=== PATIENT | male | born 1945 | race Caucasian/White ===

== ENCOUNTER 2022-05-12 18:24 | Emergency (ER) | payer OTHER, MEDICAID ==
[~2022-05-12] VITALS: Ht 177.8 cm; Wt 68.0 kg
[2022-05-12 18:35] VITALS: BP 123/54
--- NOTE | 2022-05-12 18:40 | NUR ---
PT TO BED 05 ALS.
[2022-05-12] MEDS ORDERED: NACL 0.9% 1,000 ML IV ONE ×2 (18:45→20:10)
[2022-05-12] MEDS ORDERED: DEXTROSE 50% 50 ML SYR IVP ONE ×3 (18:45→20:56)
[2022-05-12 19:33] LABS: BASOPHILS % (AUTO) 0.1 % (0.0-2.0); EOSINOPHILS % (AUTO) 0.4 % (0.0-4.0); HEMOGLOBIN 11.4 g/dL (12.0-18.0); LYMPHOCYTES # (AUTO) 0.3 K/uL (2.0-11.5); LYMPHOCYTES % (AUTO) 3.8 % (20.5-51.1); MEAN CORPUSCULAR HEMOGLOBIN 31 pg (27-31); MEAN CORPUSCULAR HGB CONC 34 g/dL (33-37); MEAN CORPUSCULAR VOLUME 93.4 fL (80-94); MONOCYTES # (AUTO) 0.4 K/uL (0.8-1.0); MONOCYTES % (AUTO) 4.9 % (1.7-9.3); NEUTROPHILS % (AUTO) 90.8 % (42.2-75.2); PLATELET COUNT (AUTO) 195 K/uL (140-450); RED BLOOD CELL COUNT(AUTO) 3.64 MIL/uL (4.20-6.10); WHITE BLOOD COUNT (AUTO) 7.7 K/uL (4.8-10.8)
--- NOTE | 2022-05-12 19:40 | NUR ---
PT TO CT
[2022-05-12 19:55] LABS: ANION GAP 15.4 (8-16); CARBON DIOXIDE 25.5 mmol/L (21-32); CHLORIDE 102 mmol/L (98-107); CREATININE 1.1 mg/dL (0.6-1.3); GLUCOSE 156 mg/dL (74-106); POTASSIUM 3.9 mmol/L (3.5-5.1); SODIUM SERUM 139 mmol/L (136-145); UREA NITROGEN, BLOOD 29 mg/dL (7-18)
[2022-05-12 20:10] LABS: ALBUMIN 3.4 g/dL (3.4-5.0); ASPARTATE AMINOTRANSFERASE 11 U/L (15-37); MAGNESIUM 1.6 mg/dL (1.8-2.4); PHOSPHORUS 4.5 mg/dL (2.5-4.9); TOTAL BILIRUBIN 0.2 mg/dL (0.0-1.0)
[2022-05-12] MEDS ORDERED: DEXT 5% / NACL 0.45% 1,000 ML IV ONE (20:55)
--- NOTE | 2022-05-12 21:16 | NUR ---
GLUC 176 AFTER JUICE AND AMP GIVEN . PT GLUC PRIOR WAS 36. DR THORNTON NOTIFED
--- NOTE | 2022-05-12 21:57 | NUR ---
PT TO CT
--- NOTE | 2022-05-12 22:03 | NUR ---
76YR OLD MALE C/O LOW BLOOD SUGAR. PT IS KNOWN DM. PT IS A&OX4. DENIES PAIN CP OR SOB. HOB ELEVATED SKIN WARM AND DRY. GLUCOSE DROPS DOWN TO 30S. DR THORNTON AWARE. 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 [place] SPEAKING ONLY CHEL[place]
[2022-05-12] MEDS ORDERED: MAG SULF 2000 MG/WATER PREMIX 50 ML IV ONE (23:55)
--- NOTE | 2022-05-13 00:42 | NUR ---
PENDING ADMIT ORDERS
--- NOTE | 2022-05-13 00:42 | NUR ---
PROVIDED FOOD TO PT.
[2022-05-13] MEDS ORDERED: LORazepam 2 MG/ML VIAL ONE (01:28)
[2022-05-13] MEDS ORDERED: LORazepam 2 MG/ML VIAL IVP ONE ×2 (01:30→01:55)
--- NOTE | 2022-05-13 03:28 | NUR ---
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 HOB ELEVATED. RESP EVEN AND UNLABORED.
--- NOTE | 2022-05-13 05:29 | NUR ---
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 HOB ELEVATED. RESP EVEN AND UNLABORED. BED AT LOWEST POSITION SIDE RAILS UP X2
[2022-05-13] MEDS ORDERED: ACETAMINOPHEN 325 MG TAB PO PRN (09:10)
[2022-05-13] MEDS ORDERED: ZOLPIDEM 5 MG TAB PO PRN (09:10)
[2022-05-13] MEDS ORDERED: ONDANSETRON 4 MG/2 ML VIAL IM/IVP PRN (09:10)
[2022-05-13] MEDS ORDERED: DOCUSATE SODIUM 100 MG GELCAP PO PRN (09:10)
[2022-05-13] MEDS ORDERED: HYDROcodone/APAP 7.5/325 MG 1 TAB PO PRN (09:10)
[2022-05-13] MEDS ORDERED: guaiFENesin DM 200/20 MG-10 ML 10 ML UDC PO PRN (09:10)
[2022-05-13] MEDS ORDERED: POTASSIUM CHLORIDE 10 MEQ TABER PO PRN (09:10)
[2022-05-13] MEDS ORDERED: DEXT 5% /NACL 0.9% 1,000 ML IV SCH (09:30)
--- NOTE | 2022-05-13 10:10 | NUR ---
MD MARTELL AT BEDSIDE FOR EVALUATION
--- NOTE | 2022-05-13 10:14 | NUR ---
PER MD MARTELL "PT OK FOR D/C" "BS CAN BE MANAGED AT FACILITY" Addendum: 05/13/22 at 1017 by PHSEP GARTH ORTEGA
[2022-05-13 10:24] LABS: PROTHROMBIN TIME 11.6 secs (10.8-13.4)
[2022-05-13 10:41] VITALS: BP 112/62
--- NOTE | 2022-05-13 10:41 | NUR ---
Patient discharged with v/s stable. Written and verbal after care instructions given and explained. Patient verbalized understanding. Ambulatory with DAUGHTER to car. All questions addressed prior to discharge. Advised to follow up with PMD. COPY OF LABS AND CT GIVEN
[2022-05-13 10:42] LABS: CHOL/HDL RATIO 1.4 (1-4.5); FREE T4 (FREE THYROXINE) 0.81 ng/dL (0.76-1.46); THYROID STIMULATING HORMONE 1.73 uIU/mL (0.34-3.74)
--- NOTE | 2022-05-13 10:42 | NUR ---
IV removed, catheter intact and site benign. Applied folded 4x4 gauze and tape to stop bleeding.
--- NOTE | 2022-05-13 10:52 | NUR ---
ATE BREAKFAST MEAL 75% TOLERATED WELL
[2022-05-14 08:07] LABS: T4 (THYROXINE) 5.2 ug/dL (4.5-12.0)
[2022-05-14] MEDS ORDERED: PANTOPRAZOLE 40 MG TABEC PO SCH (09:00)
== END 2022-05-13 10:41 | disposition home or self-care (01) ==
LOC: MED 18:24
DX: E11.649 Type 2 diabetes mellitus with hypoglycemia without coma (principal); Z20.822 Contact with and (suspected) exposure to COVID-19; R41.82 Altered mental status, unspecified; E78.5 Hyperlipidemia, unspecified; F03.90 Unspecified dementia, unspecified severity, without behavioral disturbance, psychotic disturbance, mood disturbance, and anxiety; Z79.4 Long term (current) use of insulin; Z79.899 Other long term (current) drug therapy
CPT/HCPCS: 36415; 70450; 71045; 74177; 80053; 80061; 82150; 83036; 83605; 83690; 83735; 83880; 84100; 84436; 84439; 84443; 84479; 84484; 85025; 85610; 85730; 87426; 93005; 96361; 96365; 96375; 99291; G0482; J2060; J3475; J7030; Q0092; Q9967

== ENCOUNTER 2022-05-14 22:47 | Emergency (ER) | payer OTHER, MEDICAID ==
[~2022-05-14] VITALS: Ht 170.2 cm; Wt 72.6 kg
[2022-05-14 23:00] VITALS: BP 121/50
--- NOTE | 2022-05-14 23:02 | NUR ---
Patient taken to bed 3
--- NOTE | 2022-05-14 23:37 | NUR ---
Dr. Grimm examining patient.
[2022-05-14 23:52] VITALS: BP 118/64
--- NOTE | 2022-05-14 23:58 | NUR ---
PATIENT DC HOME STABLE VITALS SIGNS IN NORMAL LIMITS ALERT ORIENTED BS 112 ALL DC INSTRUCTION GAVE AND EXPLAINED WE RECOMMEND TO FOLLOW UP WITH PCP
== END 2022-05-14 23:58 | disposition home or self-care (01) ==
LOC: MED 22:47
DX: E11.649 Type 2 diabetes mellitus with hypoglycemia without coma (principal); F03.90 Unspecified dementia, unspecified severity, without behavioral disturbance, psychotic disturbance, mood disturbance, and anxiety; E08.22 Diabetes mellitus due to underlying condition with diabetic chronic kidney disease; I12.9 Hypertensive chronic kidney disease with stage 1 through stage 4 chronic kidney disease, or unspecified chronic kidney disease; N18.9 Chronic kidney disease, unspecified; K21.9 Gastro-esophageal reflux disease without esophagitis
CPT/HCPCS: 82948; 99282

== ENCOUNTER 2023-01-25 21:11 | Emergency (ER) | payer OTHER, MEDICAID ==
[~2023-01-25] VITALS: Ht 175.3 cm; Wt 61.2 kg
[2023-01-25 21:12] VITALS: BP 126/63; PULSE 87; RESP 18; TEMP 97.8; O2SAT 97
[2023-01-25 21:25] VITALS: BP 126/63; PULSE 87; RESP 18; TEMP 97.8; O2SAT 97
== END 2023-01-26 01:15 | disposition home or self-care (01) ==
LOC: MED 21:11
DX: S01.81XA Laceration without foreign body of other part of head, initial encounter (principal); E11.9 Type 2 diabetes mellitus without complications; K21.9 Gastro-esophageal reflux disease without esophagitis; F03.90 Unspecified dementia, unspecified severity, without behavioral disturbance, psychotic disturbance, mood disturbance, and anxiety; I10 Essential (primary) hypertension; W01.198A Fall on same level from slipping, tripping and stumbling with subsequent striking against other object, initial encounter; Y92.89 Other specified places as the place of occurrence of the external cause; Y93.89 Activity, other specified; Y99.8 Other external cause status
CPT/HCPCS: 12013; 70450; 90471; 90715; 99285

== ENCOUNTER 2023-02-27 17:53 | Emergency (ER) | payer OTHER, MEDICAID ==
[~2023-02-27] VITALS: Ht 160 cm; Wt 57.8 kg
[2023-02-27 18:11] VITALS: BP 110/60; PULSE 110; RESP 15; TEMP 97.9; O2SAT 98
[2023-02-27] MEDS ORDERED: NACL 0.9% 1,000 ML IV ONE (19:45)
[2023-02-27 19:58] LABS: BASOPHILS % (AUTO) 0.4 % (0.0-2.0); EOSINOPHILS # (AUTO) 0.1 K/uL (0-0.4); EOSINOPHILS % (AUTO) 0.9 % (0.0-4.0); HEMATOCRIT 41.1 % (36-52); HEMOGLOBIN 14.1 g/dL (12.0-18.0); LYMPHOCYTES % (AUTO) 11.4 % (20.5-51.1); MEAN CORPUSCULAR HEMOGLOBIN 32 pg (27-31); MEAN CORPUSCULAR HGB CONC 34 g/dL (33-37); MEAN CORPUSCULAR VOLUME 91.8 fL (80-94); MONOCYTES # (AUTO) 0.6 K/uL (0.8-1.0); NEUTROPHILS # (AUTO) 7.1 K/uL (1.8-7.7); NEUTROPHILS % (AUTO) 80.3 % (42.2-75.2); PLATELET COUNT (AUTO) 323 K/uL (140-450); RED BLOOD CELL COUNT(AUTO) 4.48 MIL/uL (4.20-6.10); RED CELL DISTRIBUTION WIDTH 15.1 % (11.6-13.7); WHITE BLOOD COUNT (AUTO) 8.8 K/uL (4.8-10.8)
[2023-02-27 20:17] LABS: ANION GAP 14.1 (8-16); CALCIUM 9.2 mg/dL (8.5-10.1); CARBON DIOXIDE 29.5 mmol/L (21-32); CHLORIDE 100 mmol/L (98-107); CREATININE 1.2 mg/dL (0.6-1.3); GLUCOSE 153 mg/dL (74-106); POTASSIUM 3.6 mmol/L (3.5-5.1); SODIUM SERUM 140 mmol/L (136-145); UREA NITROGEN, BLOOD 34 mg/dL (7-18)
[2023-02-27 20:29] LABS: ALANINE AMINOTRANSFERASE 29 U/L (12-78); ALBUMIN 3.8 g/dL (3.4-5.0); ALKALINE PHOSPHATASE 142 U/L (50-136); ASPARTATE AMINOTRANSFERASE 18 U/L (15-37); BILIRUBIN,DIRECT 0.1 mg/dL (0.0-0.3); LIPASE 44 U/L (16-77); TOTAL BILIRUBIN 0.4 mg/dL (0.0-1.0); TOTAL PROTEIN, SERUM 8.4 g/dL (6.4-8.2)
[2023-02-27] MEDS ORDERED: CEFP200T20 PO (23:15)
[2023-02-27 23:44] VITALS: BP 102/63; PULSE 103; RESP 16; TEMP 97.8; O2SAT 98
== END 2023-02-27 23:37 | disposition home or self-care (01) ==
LOC: MED 17:53
DX: N30.00 Acute cystitis without hematuria (principal); E11.9 Type 2 diabetes mellitus without complications; I10 Essential (primary) hypertension; K21.9 Gastro-esophageal reflux disease without esophagitis; F03.90 Unspecified dementia, unspecified severity, without behavioral disturbance, psychotic disturbance, mood disturbance, and anxiety; Z79.899 Other long term (current) drug therapy
CPT/HCPCS: 36415; 71045; 74176; 80048; 80076; 82948; 83690; 84484; 85025; 93005; 96360; 99285; J7030

== ENCOUNTER 2023-03-27 18:37 | Inpatient (IN) | payer OTHER, MEDICAID ==
[~2023-03-27] VITALS: Ht 175.3 cm; Wt 56.7 kg
[~2023-03-27 18:37] MED LIST: CEFP200T20 PO
[2023-03-27 18:48] VITALS: BP 145/60; PULSE 102; RESP 16; TEMP 98.7; O2SAT 98
[2023-03-27] MEDS ORDERED: NACL 0.9% 1,000 ML IV SCH (19:10)
[2023-03-27] MEDS: NACL 0.9% 1,000 ML IV ONE ×2 (19:27→20:12)
[2023-03-27] MEDS: ONDANSETRON 4 MG/2 ML VIAL IVP ONE ×2 (19:28→20:21)
[2023-03-27] MEDS: LORazepam 2 MG/ML VIAL IVP ONE (19:28)
[2023-03-27 19:32] LABS: BASOPHILS % (AUTO) 0.2 % (0.0-2.0); HEMATOCRIT 36.3 % (36-52); HEMOGLOBIN 12.5 g/dL (12.0-18.0); LYMPHOCYTES # (AUTO) 0.4 K/uL (2.0-11.5); LYMPHOCYTES % (AUTO) 8.7 % (20.5-51.1); MEAN CORPUSCULAR HEMOGLOBIN 32 pg (27-31); MEAN CORPUSCULAR HGB CONC 34 g/dL (33-37); MEAN CORPUSCULAR VOLUME 93.6 fL (80-94); MONOCYTES # (AUTO) 0.3 K/uL (0.8-1.0); NEUTROPHILS # (AUTO) 4.2 K/uL (1.8-7.7); NEUTROPHILS % (AUTO) 85.1 % (42.2-75.2); PLATELET COUNT (AUTO) 233 K/uL (140-450); RED BLOOD CELL COUNT(AUTO) 3.88 MIL/uL (4.20-6.10); RED CELL DISTRIBUTION WIDTH 17.1 % (11.6-13.7); WHITE BLOOD COUNT (AUTO) 4.9 K/uL (4.8-10.8)
[2023-03-27 19:45] LABS: ANION GAP 12.3 (8-16); CALCIUM 9.1 mg/dL (8.5-10.1); CARBON DIOXIDE 29.1 mmol/L (21-32); CHLORIDE 100 mmol/L (98-107); CREATININE 0.7 mg/dL (0.6-1.3); GLUCOSE 177 mg/dL (74-106); POTASSIUM 3.4 mmol/L (3.5-5.1); SODIUM SERUM 138 mmol/L (136-145); UREA NITROGEN, BLOOD 25 mg/dL (7-18)
[2023-03-27 19:46] LABS: INR 1.07 (0.8-1.2); PARTIAL THROMBOPLASTIN TIME 24.9 secs (22-35.6); PROTHROMBIN TIME 11.2 secs (10.8-13.4)
[2023-03-27 19:55] LABS: LACTIC ACID 1.3 mmol/L (0.4-2.0)
[2023-03-27 20:00] LABS: ALANINE AMINOTRANSFERASE 20 U/L (12-78); ALBUMIN 4.1 g/dL (3.4-5.0); ALKALINE PHOSPHATASE 103 U/L (50-136); ASPARTATE AMINOTRANSFERASE 10 U/L (15-37); BILIRUBIN,DIRECT 0.2 mg/dL (0.0-0.3); CREATINE KINASE, TOTAL 93 U/L (39-308); TOTAL BILIRUBIN 0.6 mg/dL (0.0-1.0); TOTAL PROTEIN, SERUM 8.4 g/dL (6.4-8.2)
[2023-03-27 20:05] VITALS: O2SAT 98
[2023-03-27] MEDS: diphenhydrAMINE 50 MG/ML VIAL IVP ONE (20:21)
[2023-03-27 22:10] VITALS: O2SAT 98
[2023-03-28 00:05] VITALS: O2SAT 98
[2023-03-28] MEDS ORDERED: ACETAMINOPHEN 325 MG TAB PO PRN (01:20)
[2023-03-28] MEDS ORDERED: ONDANSETRON 4 MG/2 ML VIAL IM/IVP PRN (01:20)
[2023-03-28] MEDS ORDERED: guaiFENesin DM 200/20 MG-10 ML 10 ML UDC PO PRN (01:20)
[2023-03-28] MEDS ORDERED: POTASSIUM CHLORIDE 10 MEQ TABER PO PRN (01:20)
[2023-03-28] MEDS ORDERED: HYDROcodone/APAP 7.5/325 MG 1 TAB PO PRN (01:20)
[2023-03-28] MEDS ORDERED: DOCUSATE SODIUM 100 MG GELCAP PO PRN (01:20)
[2023-03-28] MEDS: NACL 0.9% 1,000 ML IV SCH (02:12)
[2023-03-28 02:40] VITALS: O2SAT 98
[2023-03-28] MEDS ORDERED: MEMA10TA PO ×2 (04:22→09:54)
[2023-03-28] MEDS ORDERED: ALPR0.5T2 PO (04:22)
[2023-03-28] MEDS ORDERED: [UNRECOGNIZED DRUG - CODE] PO (04:22)
[2023-03-28] MEDS ORDERED: RISP0.5T3 PO (04:22)
[2023-03-28] MEDS ORDERED: ATOR40TA PO ×2 (04:22→09:56)
[2023-03-28] MEDS ORDERED: LISI5TAB18 PO (04:22)
[2023-03-28] MEDS ORDERED: INSU3SUS16 SC (04:22)
[2023-03-28] MEDS ORDERED: METF-346 PO (04:22)
[2023-03-28 05:25] VITALS: O2SAT 100
[2023-03-28 07:16] LABS: BASOPHILS % (AUTO) 0.3 % (0.0-2.0); EOSINOPHILS % (AUTO) 0.9 % (0.0-4.0); HEMATOCRIT 35.4 % (36-52); LYMPHOCYTES # (AUTO) 0.6 K/uL (2.0-11.5); LYMPHOCYTES % (AUTO) 13.2 % (20.5-51.1); MEAN CORPUSCULAR HEMOGLOBIN 32 pg (27-31); MEAN CORPUSCULAR HGB CONC 34 g/dL (33-37); MEAN CORPUSCULAR VOLUME 94.9 fL (80-94); MONOCYTES # (AUTO) 0.4 K/uL (0.8-1.0); MONOCYTES % (AUTO) 7.9 % (1.7-9.3); NEUTROPHILS # (AUTO) 3.8 K/uL (1.8-7.7); NEUTROPHILS % (AUTO) 77.7 % (42.2-75.2); PLATELET COUNT (AUTO) 203 K/uL (140-450); RED BLOOD CELL COUNT(AUTO) 3.72 MIL/uL (4.20-6.10); RED CELL DISTRIBUTION WIDTH 17.2 % (11.6-13.7); WHITE BLOOD COUNT (AUTO) 4.9 K/uL (4.8-10.8)
[2023-03-28 07:30] VITALS: O2SAT 100
[2023-03-28 08:00] VITALS: RESP 13; O2SAT 100
[2023-03-28 08:00] LABS: ALANINE AMINOTRANSFERASE 16 U/L (12-78); ALBUMIN 3.4 g/dL (3.4-5.0); ALKALINE PHOSPHATASE 93 U/L (50-136); ANION GAP 9.1 (8-16); ASPARTATE AMINOTRANSFERASE 9 U/L (15-37); CALCIUM 8.6 mg/dL (8.5-10.1); CARBON DIOXIDE 30.1 mmol/L (21-32); CHLORIDE 105 mmol/L (98-107); CREATININE 0.8 mg/dL (0.6-1.3); GLUCOSE 170 mg/dL (74-106); MAGNESIUM 1.9 mg/dL (1.8-2.4); PHOSPHORUS 3.5 mg/dL (2.5-4.9); POTASSIUM 3.2 mmol/L (3.5-5.1); SODIUM SERUM 141 mmol/L (136-145); TOTAL BILIRUBIN 0.6 mg/dL (0.0-1.0); TOTAL PROTEIN, SERUM 7.2 g/dL (6.4-8.2); UREA NITROGEN, BLOOD 8 mg/dL (7-18)
[2023-03-28] MEDS: PANTOPRAZOLE 40 MG TABEC PO SCH (09:00)
[2023-03-28 09:50] LABS: APPEARANCE,URINE CLEAR (CLEAR); BILIRUBIN,URINE NEGATIVE (NEGATIVE); BLOOD, URINE NEGATIVE (NEGATIVE); COLOR,URINE YELLOW (YELLOW); LEUKOCYTE ESTERASE ,URINE NEGATIVE (NEGATIVE); NITRITE, URINE NEGATIVE (NEGATIVE); PH,URINE 6.5 (5.0-9.0); PROTEIN,URINE NEGATIVE (NEGATIVE); UGLUCOSE 1+ (NEGATIVE)
[2023-03-28] MEDS ORDERED: DEXTROSE 50% 50 ML SYR IVP PRN (09:55)
[2023-03-28] MEDS: INSULIN LISPRO SLIDING SCALE 100 UNITS/ML VIAL SUBQ PRN (10:06)
[2023-03-28 10:23] LABS: BACTERIA,URINE OCCASSIONAL /HPF (None Seen); RBC,URINE 0-5 /HPF (0-5); SQUAMOUS EPITHELIAL CELL,UR 0-3 (FEW) /LPF (0-3 (FEW)); WBC,URINE 0-5 /HPF (0-5)
[2023-03-28] MEDS: BLOOD GLUCOSE MONITORING 1 DEV DEV FS SCH (11:30)
[2023-03-28] MEDS ORDERED: LORazepam 2 MG/ML VIAL IM/IVP PRN (17:00)
[2023-03-28 20:00] VITALS: BP 136/58; PULSE 59; PULSE 65; RESP 18; TEMP 97.7; O2SAT 98
[2023-03-28] MEDS: ZOLPIDEM 5 MG TAB PO PRN (20:31)
[2023-03-29] VITALS (7 sets, daily range): BP systolic 138–152; BP diastolic 55–71; PULSE 54–78; RESP 18–19; TEMP 97.7–98.3; O2SAT 97–99
[2023-03-29 07:13] LABS: BASOPHILS % (AUTO) 0.3 % (0.0-2.0); EOSINOPHILS # (AUTO) 0.1 K/uL (0-0.4); EOSINOPHILS % (AUTO) 1.7 % (0.0-4.0); HEMATOCRIT 35.4 % (36-52); HEMOGLOBIN 12.3 g/dL (12.0-18.0); LYMPHOCYTES # (AUTO) 0.7 K/uL (2.0-11.5); LYMPHOCYTES % (AUTO) 15.2 % (20.5-51.1); MEAN CORPUSCULAR HEMOGLOBIN 33 pg (27-31); MEAN CORPUSCULAR HGB CONC 35 g/dL (33-37); MEAN CORPUSCULAR VOLUME 93.6 fL (80-94); MONOCYTES # (AUTO) 0.4 K/uL (0.8-1.0); MONOCYTES % (AUTO) 8.2 % (1.7-9.3); NEUTROPHILS # (AUTO) 3.2 K/uL (1.8-7.7); NEUTROPHILS % (AUTO) 74.6 % (42.2-75.2); PLATELET COUNT (AUTO) 211 K/uL (140-450); RED BLOOD CELL COUNT(AUTO) 3.79 MIL/uL (4.20-6.10); RED CELL DISTRIBUTION WIDTH 16.6 % (11.6-13.7); WHITE BLOOD COUNT (AUTO) 4.3 K/uL (4.8-10.8)
[2023-03-29 07:21] LABS: ALANINE AMINOTRANSFERASE 16 U/L (12-78); ALBUMIN 3.4 g/dL (3.4-5.0); ALKALINE PHOSPHATASE 95 U/L (50-136); ANION GAP 12.7 (8-16); ASPARTATE AMINOTRANSFERASE 8 U/L (15-37); CALCIUM 8.5 mg/dL (8.5-10.1); CARBON DIOXIDE 27.8 mmol/L (21-32); CHLORIDE 103 mmol/L (98-107); CREATININE 0.8 mg/dL (0.6-1.3); GLUCOSE 171 mg/dL (74-106); POTASSIUM 3.5 mmol/L (3.5-5.1); SODIUM SERUM 140 mmol/L (136-145); TOTAL BILIRUBIN 0.8 mg/dL (0.0-1.0); TOTAL PROTEIN, SERUM 7.3 g/dL (6.4-8.2); UREA NITROGEN, BLOOD 10 mg/dL (7-18)
[2023-03-29] MEDS ORDERED: ALPRAZolam 0.5 MG TAB PO PRN (11:15)
[2023-03-29] MEDS: ALPRAZolam 0.5 MG TAB PO SCH (20:45)
[2023-03-29] MEDS: risperiDONE 1 MG TAB PO SCH (20:45)
[2023-03-30 04:18] VITALS: BP 131/56; PULSE 64; RESP 20; TEMP 97.5; O2SAT 99
[2023-03-30 07:03] LABS: BASOPHILS % (AUTO) 0.2 % (0.0-2.0); EOSINOPHILS # (AUTO) 0.1 K/uL (0-0.4); EOSINOPHILS % (AUTO) 3.6 % (0.0-4.0); HEMATOCRIT 37.3 % (36-52); HEMOGLOBIN 12.9 g/dL (12.0-18.0); LYMPHOCYTES # (AUTO) 0.7 K/uL (2.0-11.5); LYMPHOCYTES % (AUTO) 19.7 % (20.5-51.1); MEAN CORPUSCULAR HEMOGLOBIN 33 pg (27-31); MEAN CORPUSCULAR HGB CONC 35 g/dL (33-37); MEAN CORPUSCULAR VOLUME 94.4 fL (80-94); MONOCYTES # (AUTO) 0.4 K/uL (0.8-1.0); MONOCYTES % (AUTO) 10.7 % (1.7-9.3); NEUTROPHILS # (AUTO) 2.5 K/uL (1.8-7.7); NEUTROPHILS % (AUTO) 65.8 % (42.2-75.2); PLATELET COUNT (AUTO) 223 K/uL (140-450); RED BLOOD CELL COUNT(AUTO) 3.95 MIL/uL (4.20-6.10); RED CELL DISTRIBUTION WIDTH 16.7 % (11.6-13.7); WHITE BLOOD COUNT (AUTO) 3.7 K/uL (4.8-10.8)
[2023-03-30 07:32] LABS: ALANINE AMINOTRANSFERASE 19 U/L (12-78); ALBUMIN 3.5 g/dL (3.4-5.0); ALKALINE PHOSPHATASE 104 U/L (50-136); ANION GAP 14.9 (8-16); ASPARTATE AMINOTRANSFERASE 9 U/L (15-37); CALCIUM 8.7 mg/dL (8.5-10.1); CARBON DIOXIDE 26.5 mmol/L (21-32); CHLORIDE 102 mmol/L (98-107); CREATININE 0.7 mg/dL (0.6-1.3); GLUCOSE 189 mg/dL (74-106); POTASSIUM 3.4 mmol/L (3.5-5.1); SODIUM SERUM 140 mmol/L (136-145); TOTAL BILIRUBIN 0.9 mg/dL (0.0-1.0); TOTAL PROTEIN, SERUM 7.3 g/dL (6.4-8.2); UREA NITROGEN, BLOOD 14 mg/dL (7-18)
[2023-03-30 08:00] VITALS: BP 124/76; PULSE 75; PULSE 84; RESP 18; TEMP 98.2; O2SAT 98; O2SAT 99
[2023-03-30] MEDS: SERTRALINE 50 MG TAB PO SCH (09:01)
[2023-03-30 12:00] VITALS: BP 130/76; PULSE 80; RESP 16; TEMP 98; O2SAT 99
[2023-03-30 15:48] VITALS: PULSE 75
[2023-03-30 16:00] VITALS: BP 134/68; PULSE 82; RESP 20; TEMP 98.2; O2SAT 99
[2023-03-30 20:00] VITALS: BP 146/65; PULSE 63; RESP 17; TEMP 97.6; O2SAT 100
[2023-03-30] MEDS: MEMANTINE 10 MG TAB PO SCH (20:26)
[2023-03-31 07:11] LABS: BASOPHILS % (AUTO) 0.1 % (0.0-2.0); EOSINOPHILS # (AUTO) 0.1 K/uL (0-0.4); EOSINOPHILS % (AUTO) 2.6 % (0.0-4.0); HEMATOCRIT 35.1 % (36-52); HEMOGLOBIN 12.2 g/dL (12.0-18.0); LYMPHOCYTES # (AUTO) 0.5 K/uL (2.0-11.5); LYMPHOCYTES % (AUTO) 12.2 % (20.5-51.1); MEAN CORPUSCULAR HEMOGLOBIN 32 pg (27-31); MEAN CORPUSCULAR HGB CONC 35 g/dL (33-37); MEAN CORPUSCULAR VOLUME 93.5 fL (80-94); MONOCYTES # (AUTO) 0.3 K/uL (0.8-1.0); MONOCYTES % (AUTO) 7.2 % (1.7-9.3); NEUTROPHILS # (AUTO) 3.4 K/uL (1.8-7.7); NEUTROPHILS % (AUTO) 77.9 % (42.2-75.2); PLATELET COUNT (AUTO) 211 K/uL (140-450); RED BLOOD CELL COUNT(AUTO) 3.76 MIL/uL (4.20-6.10); RED CELL DISTRIBUTION WIDTH 16.6 % (11.6-13.7); WHITE BLOOD COUNT (AUTO) 4.4 K/uL (4.8-10.8)
[2023-03-31 07:36] LABS: ALANINE AMINOTRANSFERASE 24 U/L (12-78); ALBUMIN 3.3 g/dL (3.4-5.0); ALKALINE PHOSPHATASE 116 U/L (50-136); ANION GAP 14.1 (8-16); ASPARTATE AMINOTRANSFERASE 11 U/L (15-37); CALCIUM 8.6 mg/dL (8.5-10.1); CARBON DIOXIDE 25.4 mmol/L (21-32); CHLORIDE 99 mmol/L (98-107); CREATININE 0.6 mg/dL (0.6-1.3); GLUCOSE 269 mg/dL (74-106); POTASSIUM 3.5 mmol/L (3.5-5.1); SODIUM SERUM 135 mmol/L (136-145); TOTAL BILIRUBIN 0.4 mg/dL (0.0-1.0); TOTAL PROTEIN, SERUM 7.1 g/dL (6.4-8.2); UREA NITROGEN, BLOOD 13 mg/dL (7-18)
[2023-03-31 08:00] VITALS: BP 140/61; PULSE 61; RESP 18; TEMP 97; O2SAT 100
[2023-03-31] MEDS: lisinopriL 5 MG TAB PO SCH (08:50)
[2023-03-31 16:00] VITALS: BP 130/64; PULSE 72; RESP 18; TEMP 98; O2SAT 100
[2023-03-31 20:00] VITALS: PULSE 72; RESP 18; O2SAT 97
[2023-04-01] VITALS: BP 110/72; PULSE 72; RESP 18; TEMP 98.2; O2SAT 97
[2023-04-01 07:47] LABS: BASOPHILS % (AUTO) 0.3 % (0.0-2.0); EOSINOPHILS # (AUTO) 0.2 K/uL (0-0.4); EOSINOPHILS % (AUTO) 3.6 % (0.0-4.0); HEMATOCRIT 36.3 % (36-52); HEMOGLOBIN 12.4 g/dL (12.0-18.0); LYMPHOCYTES # (AUTO) 0.7 K/uL (2.0-11.5); LYMPHOCYTES % (AUTO) 14.7 % (20.5-51.1); MEAN CORPUSCULAR HEMOGLOBIN 33 pg (27-31); MEAN CORPUSCULAR HGB CONC 34 g/dL (33-37); MEAN CORPUSCULAR VOLUME 95.1 fL (80-94); MONOCYTES # (AUTO) 0.4 K/uL (0.8-1.0); MONOCYTES % (AUTO) 7.8 % (1.7-9.3); NEUTROPHILS # (AUTO) 3.4 K/uL (1.8-7.7); NEUTROPHILS % (AUTO) 73.6 % (42.2-75.2); PLATELET COUNT (AUTO) 216 K/uL (140-450); RED BLOOD CELL COUNT(AUTO) 3.81 MIL/uL (4.20-6.10); RED CELL DISTRIBUTION WIDTH 16.3 % (11.6-13.7); WHITE BLOOD COUNT (AUTO) 4.6 K/uL (4.8-10.8)
[2023-04-01 08:00] VITALS: BP 136/63; PULSE 61; PULSE 64; RESP 18; TEMP 98; O2SAT 100; O2SAT 99
[2023-04-01 08:34] LABS: ALANINE AMINOTRANSFERASE 30 U/L (12-78); ALBUMIN 3.4 g/dL (3.4-5.0); ALKALINE PHOSPHATASE 118 U/L (50-136); ANION GAP 12.2 (8-16); ASPARTATE AMINOTRANSFERASE 11 U/L (15-37); CALCIUM 8.4 mg/dL (8.5-10.1); CARBON DIOXIDE 27.2 mmol/L (21-32); CHLORIDE 103 mmol/L (98-107); CREATININE 0.4 mg/dL (0.6-1.3); GLUCOSE 227 mg/dL (74-106); POTASSIUM 3.4 mmol/L (3.5-5.1); SODIUM SERUM 139 mmol/L (136-145); TOTAL BILIRUBIN 0.4 mg/dL (0.0-1.0); TOTAL PROTEIN, SERUM 7.4 g/dL (6.4-8.2); UREA NITROGEN, BLOOD 10 mg/dL (7-18)
[2023-04-01 16:00] VITALS: BP 132/61; PULSE 71; RESP 18; TEMP 97.8; O2SAT 96
[2023-04-01 20:00] VITALS: BP 122/58; PULSE 63; RESP 18; TEMP 96.7; O2SAT 99
[2023-04-01] MEDS: HALOPERIDOL IM 5 MG/ML VIAL IM ONE (21:00)
[2023-04-01] MEDS: POTASSIUM CHLORIDE 10 MEQ TABER PO ONE ×2 (23:29→23:39)
[2023-04-02 07:30] LABS: BASOPHILS % (AUTO) 0.2 % (0.0-2.0); EOSINOPHILS # (AUTO) 0.2 K/uL (0-0.4); HEMATOCRIT 34.4 % (36-52); HEMOGLOBIN 11.9 g/dL (12.0-18.0); LYMPHOCYTES # (AUTO) 0.7 K/uL (2.0-11.5); LYMPHOCYTES % (AUTO) 19.5 % (20.5-51.1); MEAN CORPUSCULAR HEMOGLOBIN 33 pg (27-31); MEAN CORPUSCULAR HGB CONC 35 g/dL (33-37); MEAN CORPUSCULAR VOLUME 94.7 fL (80-94); MONOCYTES # (AUTO) 0.4 K/uL (0.8-1.0); MONOCYTES % (AUTO) 9.7 % (1.7-9.3); NEUTROPHILS # (AUTO) 2.5 K/uL (1.8-7.7); NEUTROPHILS % (AUTO) 66.6 % (42.2-75.2); PLATELET COUNT (AUTO) 208 K/uL (140-450); RED BLOOD CELL COUNT(AUTO) 3.64 MIL/uL (4.20-6.10); RED CELL DISTRIBUTION WIDTH 16.6 % (11.6-13.7); WHITE BLOOD COUNT (AUTO) 3.8 K/uL (4.8-10.8)
[2023-04-02 08:00] VITALS: BP 135/52; PULSE 61; PULSE 64; RESP 18; TEMP 97.5; O2SAT 100; O2SAT 99
[2023-04-02 08:04] LABS: ALANINE AMINOTRANSFERASE 30 U/L (12-78); ALBUMIN 3.4 g/dL (3.4-5.0); ALKALINE PHOSPHATASE 104 U/L (50-136); ANION GAP 12.6 (8-16); ASPARTATE AMINOTRANSFERASE 13 U/L (15-37); CALCIUM 8.9 mg/dL (8.5-10.1); CARBON DIOXIDE 27.3 mmol/L (21-32); CHLORIDE 103 mmol/L (98-107); CREATININE 0.6 mg/dL (0.6-1.3); GLUCOSE 235 mg/dL (74-106); POTASSIUM 3.9 mmol/L (3.5-5.1); SODIUM SERUM 139 mmol/L (136-145); TOTAL BILIRUBIN 0.4 mg/dL (0.0-1.0); TOTAL PROTEIN, SERUM 6.5 g/dL (6.4-8.2); UREA NITROGEN, BLOOD 14 mg/dL (7-18)
[2023-04-02 16:00] VITALS: BP 129/61; PULSE 69; RESP 18; TEMP 97.3; O2SAT 99
[2023-04-02 20:00] VITALS: BP 116/68; PULSE 90; RESP 18; TEMP 97.2; O2SAT 99
[2023-04-03 06:42] LABS: BASOPHILS % (AUTO) 0.5 % (0.0-2.0); EOSINOPHILS # (AUTO) 0.1 K/uL (0-0.4); EOSINOPHILS % (AUTO) 3.8 % (0.0-4.0); HEMATOCRIT 36.9 % (36-52); HEMOGLOBIN 12.6 g/dL (12.0-18.0); LYMPHOCYTES # (AUTO) 0.8 K/uL (2.0-11.5); LYMPHOCYTES % (AUTO) 22.1 % (20.5-51.1); MEAN CORPUSCULAR HEMOGLOBIN 33 pg (27-31); MEAN CORPUSCULAR HGB CONC 34 g/dL (33-37); MONOCYTES # (AUTO) 0.4 K/uL (0.8-1.0); MONOCYTES % (AUTO) 9.8 % (1.7-9.3); NEUTROPHILS # (AUTO) 2.4 K/uL (1.8-7.7); NEUTROPHILS % (AUTO) 63.8 % (42.2-75.2); PLATELET COUNT (AUTO) 212 K/uL (140-450); RED BLOOD CELL COUNT(AUTO) 3.89 MIL/uL (4.20-6.10); RED CELL DISTRIBUTION WIDTH 16.7 % (11.6-13.7); WHITE BLOOD COUNT (AUTO) 3.7 K/uL (4.8-10.8)
[2023-04-03 06:57] LABS: ALANINE AMINOTRANSFERASE 29 U/L (12-78); ALBUMIN 3.5 g/dL (3.4-5.0); ALKALINE PHOSPHATASE 126 U/L (50-136); ANION GAP 11.5 (8-16); ASPARTATE AMINOTRANSFERASE 10 U/L (15-37); CALCIUM 8.7 mg/dL (8.5-10.1); CARBON DIOXIDE 29.2 mmol/L (21-32); CHLORIDE 100 mmol/L (98-107); CREATININE 0.7 mg/dL (0.6-1.3); GLUCOSE 255 mg/dL (74-106); POTASSIUM 3.7 mmol/L (3.5-5.1); SODIUM SERUM 137 mmol/L (136-145); TOTAL BILIRUBIN 0.4 mg/dL (0.0-1.0); TOTAL PROTEIN, SERUM 7.5 g/dL (6.4-8.2); UREA NITROGEN, BLOOD 17 mg/dL (7-18)
[2023-04-03 08:00] VITALS: BP 135/63; PULSE 63; PULSE 90; RESP 18; TEMP 97; O2SAT 98
[2023-04-03 16:00] VITALS: BP 125/72; PULSE 67; RESP 19; TEMP 97.3; O2SAT 100
[2023-04-03 20:00] VITALS: BP 122/70; PULSE 70; RESP 19; TEMP 97.1; O2SAT 100
[2023-04-04 07:17] LABS: BASOPHILS % (AUTO) 0.4 % (0.0-2.0); EOSINOPHILS # (AUTO) 0.2 K/uL (0-0.4); EOSINOPHILS % (AUTO) 4.2 % (0.0-4.0); HEMATOCRIT 36.8 % (36-52); HEMOGLOBIN 12.7 g/dL (12.0-18.0); LYMPHOCYTES # (AUTO) 0.9 K/uL (2.0-11.5); LYMPHOCYTES % (AUTO) 20.2 % (20.5-51.1); MEAN CORPUSCULAR HEMOGLOBIN 33 pg (27-31); MEAN CORPUSCULAR HGB CONC 35 g/dL (33-37); MEAN CORPUSCULAR VOLUME 95.2 fL (80-94); MONOCYTES # (AUTO) 0.5 K/uL (0.8-1.0); MONOCYTES % (AUTO) 10.2 % (1.7-9.3); NEUTROPHILS # (AUTO) 2.9 K/uL (1.8-7.7); PLATELET COUNT (AUTO) 209 K/uL (140-450); RED BLOOD CELL COUNT(AUTO) 3.87 MIL/uL (4.20-6.10); RED CELL DISTRIBUTION WIDTH 16.6 % (11.6-13.7); WHITE BLOOD COUNT (AUTO) 4.5 K/uL (4.8-10.8)
[2023-04-04 07:40] LABS: ALANINE AMINOTRANSFERASE 29 U/L (12-78); ALBUMIN 3.5 g/dL (3.4-5.0); ALKALINE PHOSPHATASE 112 U/L (50-136); ANION GAP 13.7 (8-16); ASPARTATE AMINOTRANSFERASE 7 U/L (15-37); CALCIUM 8.7 mg/dL (8.5-10.1); CARBON DIOXIDE 28.3 mmol/L (21-32); CHLORIDE 100 mmol/L (98-107); CREATININE 0.7 mg/dL (0.6-1.3); GLUCOSE 197 mg/dL (74-106); SODIUM SERUM 138 mmol/L (136-145); TOTAL BILIRUBIN 0.4 mg/dL (0.0-1.0); TOTAL PROTEIN, SERUM 7.4 g/dL (6.4-8.2); UREA NITROGEN, BLOOD 19 mg/dL (7-18)
[2023-04-04 08:00] VITALS: BP 136/64; PULSE 64; PULSE 70; RESP 18; TEMP 96.5; O2SAT 100; O2SAT 95
[2023-04-04] MEDS ORDERED: HUMSLIDE SUBQ (12:39)
[2023-04-04] MEDS ORDERED: RIS1 PO (12:39)
[2023-04-04] MEDS ORDERED: ALPR0.5T20 PO (12:39)
[2023-04-04] MEDS ORDERED: INSU100S22 SUBQ (12:40)
[2023-04-04 16:00] VITALS: BP 130/74; PULSE 64; RESP 18; TEMP 97.2; O2SAT 97
[2023-04-04 16:11] VITALS: BP 130/74; PULSE 64; TEMP 97.2
== END 2023-04-04 18:32 | DRG 74 ==
LOC: MED 18:37 → MTU 03-28 01:22
PROVIDERS: ADMIT Student in an Organized Health Care Education/Training Program; ATTEND Student in an Organized Health Care Education/Training Program
PROC: 4A00X4Z Measurement of Central Nervous Electrical Activity, External Approach (ICD-10-PCS; principal; 2023-03-27)
DX: E11.43 Type 2 diabetes mellitus with diabetic autonomic (poly)neuropathy (principal); F03.918 Unspecified dementia, unspecified severity, with other behavioral disturbance; Z68.1 Body mass index [BMI] 19.9 or less, adult; E44.1 Mild protein-calorie malnutrition; K31.84 Gastroparesis; G24.9 Dystonia, unspecified; E78.5 Hyperlipidemia, unspecified; I10 Essential (primary) hypertension; I44.0 Atrioventricular block, first degree
CPT/HCPCS: 36415; 70450; 71045; 80048; 80053; 80076; 81001; 82550; 82948; 83036; 83605; 83690; 83735; 84100; 84484; 85025; 85610; 85730; 87040; 87081; 87086; 92526; 93005; 95816; 96361; 96374; 96375; 96376; 97112; 97116; 97163-GP; 97530; 99285; J1200; J1815; J2060; J2405; Q0092; Q9967

== ENCOUNTER 2023-08-24 14:47 | Inpatient (IN) | payer OTHER ==
[~2023-08-24] VITALS: Ht 160 cm; Wt 62.6 kg
[~2023-08-24 14:47] MED LIST changes: +ALPR0.5T2 PO; +ALPR0.5T20 PO; +ATOR40TA PO; -CEFP200T20 PO; +HUMSLIDE SUBQ; +INSU100S22 SUBQ; +INSU3SUS16 SC; +LISI5TAB18 PO; +MEMA10TA22 PO; +METF-346 PO; +RIS1 PO; +[UNRECOGNIZED DRUG - CODE] PO
[2023-08-24 14:58] VITALS: BP 126/83; PULSE 76; RESP 16; TEMP 98.2; O2SAT 98
[2023-08-24 16:44] LABS: APPEARANCE,URINE CLEAR (CLEAR); BILIRUBIN,URINE NEGATIVE (NEGATIVE); BLOOD, URINE NEGATIVE (NEGATIVE); COLOR,URINE YELLOW (YELLOW); LEUKOCYTE ESTERASE ,URINE NEGATIVE (NEGATIVE); NITRITE, URINE NEGATIVE (NEGATIVE); PROTEIN,URINE NEGATIVE (NEGATIVE); UGLUCOSE 3+ (NEGATIVE)
[2023-08-24 16:56] LABS: AMPHETAMINE, URINE NEGATIVE ng/ml (NEG <=1000); BARBITURATE, URINE NEGATIVE ng/ml (NEG <=200); BENZODIAZEPINE, URINE POSITIVE ng/mL (NEG <=200); CANNABINOID, URINE NEGATIVE ng/mL (NEG <=50); COCAINE, URINE NEGATIVE ng/mL (NEG <=300); OPIATE, URINE NEGATIVE ng/mL (NEG <=2000); PHENCYCLIDINE SCREEN,URINE NEGATIVE ng/mL (NEG <=25)
[2023-08-24 16:59] LABS: BASOPHILS % (AUTO) 0.4 % (0.0-2.0); EOSINOPHILS # (AUTO) 0.2 K/uL (0-0.4); EOSINOPHILS % (AUTO) 3.8 % (0.0-4.0); HEMOGLOBIN 11.9 g/dL (12.0-18.0); LYMPHOCYTES % (AUTO) 17.1 % (20.5-51.1); MEAN CORPUSCULAR HEMOGLOBIN 32 pg (27-31); MEAN CORPUSCULAR HGB CONC 34 g/dL (33-37); MEAN CORPUSCULAR VOLUME 93.9 fL (80-94); MONOCYTES # (AUTO) 0.5 K/uL (0.8-1.0); MONOCYTES % (AUTO) 8.2 % (1.7-9.3); NEUTROPHILS # (AUTO) 4.3 K/uL (1.8-7.7); NEUTROPHILS % (AUTO) 70.5 % (42.2-75.2); PLATELET COUNT (AUTO) 172 K/uL (140-450); RED BLOOD CELL COUNT(AUTO) 3.73 MIL/uL (4.20-6.10); RED CELL DISTRIBUTION WIDTH 15.4 % (11.6-13.7); WHITE BLOOD COUNT (AUTO) 6.1 K/uL (4.8-10.8)
[2023-08-24 17:20] LABS: ALANINE AMINOTRANSFERASE 21 U/L (12-78); ALBUMIN 3.5 g/dL (3.4-5.0); ALCOHOL, BLOOD < 3 mg/dL (<10); ALKALINE PHOSPHATASE 92 U/L (50-136); ANION GAP 14.2 (8-16); ASPARTATE AMINOTRANSFERASE 9 U/L (15-37); CALCIUM 8.6 mg/dL (8.5-10.1); CARBON DIOXIDE 25.7 mmol/L (21-32); CHLORIDE 100 mmol/L (98-107); CREATININE 0.9 mg/dL (0.6-1.3); GLUCOSE 200 mg/dL (74-106); POTASSIUM 3.9 mmol/L (3.5-5.1); SALICYLATE < 2.8 mg/dL (2.8-20.0); SODIUM SERUM 136 mmol/L (136-145); TOTAL BILIRUBIN 0.2 mg/dL (0.0-1.0); TOTAL PROTEIN, SERUM 6.8 g/dL (6.4-8.2); UREA NITROGEN, BLOOD 23 mg/dL (7-18)
[2023-08-24] MEDS ORDERED: INSU100S22 SUBQ (18:03)
[2023-08-24] MEDS ORDERED: DONE5TAB6 PO (18:03)
[2023-08-24] MEDS ORDERED: MEMA10TA22 PO (18:03)
[2023-08-24] MEDS ORDERED: TUBE5SOL28 TD (18:03)
[2023-08-24] MEDS ORDERED: BISA-279 RC (18:03)
[2023-08-24] MEDS ORDERED: HUM SUBQ (18:03)
[2023-08-24] MEDS ORDERED: ESCI10TA PO (18:03)
[2023-08-24] MEDS ORDERED: RISP0.5T3 PO (18:03)
[2023-08-24] MEDS ORDERED: HYDROcodone/APAP 5/325 MG 1 TAB TAB PO PRN (18:40)
[2023-08-24] MEDS ORDERED: ACETAMINOPHEN 325 MG TAB PO PRN (18:40)
[2023-08-24] MEDS ORDERED: DEXTROSE 50% 50 ML SYR IVP PRN (18:45)
[2023-08-24] MEDS: NACL 0.9% 1,000 ML IV SCH (19:10)
[2023-08-24] MEDS ORDERED: LORazepam 2 MG/ML VIAL ONE ×2 (19:21→19:25)
[2023-08-24] MEDS: LORazepam 2 MG/ML VIAL IVP ONE (19:58)
[2023-08-24] MEDS: BLOOD GLUCOSE MONITORING 1 DEV DEV FS SCH (20:52)
[2023-08-24] MEDS: risperiDONE 1 MG TAB PO SCH (21:15)
[2023-08-24] MEDS: MEMANTINE 10 MG TAB PO SCH (21:15)
[2023-08-24] MEDS: ALPRAZolam 0.5 MG TAB PO SCH (21:15)
[2023-08-24] MEDS: INSULIN LISPRO SLIDING SCALE 100 UNITS/ML VIAL SUBQ PRN (21:15)
[2023-08-24 22:00] VITALS: BP 128/63; PULSE 74; RESP 18; TEMP 98.3; O2SAT 96; O2SAT 97
[2023-08-25 05:32] LABS: BASOPHILS % (AUTO) 0.5 % (0.0-2.0); EOSINOPHILS # (AUTO) 0.3 K/uL (0-0.4); EOSINOPHILS % (AUTO) 6.7 % (0.0-4.0); HEMATOCRIT 35.4 % (36-52); HEMOGLOBIN 12.2 g/dL (12.0-18.0); LYMPHOCYTES # (AUTO) 1.2 K/uL (2.0-11.5); LYMPHOCYTES % (AUTO) 25.8 % (20.5-51.1); MEAN CORPUSCULAR HEMOGLOBIN 32 pg (27-31); MEAN CORPUSCULAR HGB CONC 35 g/dL (33-37); MEAN CORPUSCULAR VOLUME 92.5 fL (80-94); MONOCYTES # (AUTO) 0.5 K/uL (0.8-1.0); MONOCYTES % (AUTO) 9.9 % (1.7-9.3); NEUTROPHILS # (AUTO) 2.6 K/uL (1.8-7.7); NEUTROPHILS % (AUTO) 57.1 % (42.2-75.2); PLATELET COUNT (AUTO) 182 K/uL (140-450); RED BLOOD CELL COUNT(AUTO) 3.83 MIL/uL (4.20-6.10); RED CELL DISTRIBUTION WIDTH 15.1 % (11.6-13.7); WHITE BLOOD COUNT (AUTO) 4.6 K/uL (4.8-10.8)
[2023-08-25 05:40] LABS: ANION GAP 12.3 (8-16); CALCIUM 8.7 mg/dL (8.5-10.1); CARBON DIOXIDE 27.4 mmol/L (21-32); CHLORIDE 103 mmol/L (98-107); CREATININE 0.7 mg/dL (0.6-1.3); GLUCOSE 174 mg/dL (74-106); POTASSIUM 3.7 mmol/L (3.5-5.1); SODIUM SERUM 139 mmol/L (136-145); UREA NITROGEN, BLOOD 16 mg/dL (7-18)
[2023-08-25 08:30] VITALS: BP 122/67; PULSE 56; RESP 18; TEMP 98.1; O2SAT 97
[2023-08-25] MEDS: ATORVASTATIN 20 MG TAB PO SCH (08:44)
[2023-08-25] MEDS: ESCITALOPRAM 20 MG TAB PO SCH (08:46)
[2023-08-25] MEDS: bisacodyL 10 MG SUPP RC SCH (09:00)
[2023-08-25 09:30] VITALS: RESP 18
[2023-08-25 16:00] VITALS: BP 135/63; PULSE 73; RESP 18; TEMP 98.2; O2SAT 100
[2023-08-25] MEDS: LORazepam 0.5 MG TAB PO PRN (16:49)
[2023-08-25 16:57] VITALS: O2SAT 97
[2023-08-25] MEDS: LORazepam 2 MG/ML VIAL IVP PRN (18:57)
[2023-08-25 20:00] VITALS: BP 128/62; PULSE 62; RESP 18; TEMP 98.1; O2SAT 98
[2023-08-25] MEDS: DONEPEZIL 10 MG TAB PO SCH (22:00)
[2023-08-26] VITALS: BP 130/70; PULSE 60; RESP 18; TEMP 98; O2SAT 96
[2023-08-26 05:51] LABS: BASOPHILS % (AUTO) 0.6 % (0.0-2.0); EOSINOPHILS # (AUTO) 0.2 K/uL (0-0.4); EOSINOPHILS % (AUTO) 4.8 % (0.0-4.0); HEMATOCRIT 37.2 % (36-52); HEMOGLOBIN 12.9 g/dL (12.0-18.0); LYMPHOCYTES # (AUTO) 1.1 K/uL (2.0-11.5); LYMPHOCYTES % (AUTO) 22.9 % (20.5-51.1); MEAN CORPUSCULAR HEMOGLOBIN 32 pg (27-31); MEAN CORPUSCULAR HGB CONC 35 g/dL (33-37); MEAN CORPUSCULAR VOLUME 92.5 fL (80-94); MONOCYTES # (AUTO) 0.5 K/uL (0.8-1.0); MONOCYTES % (AUTO) 9.3 % (1.7-9.3); NEUTROPHILS % (AUTO) 62.4 % (42.2-75.2); PLATELET COUNT (AUTO) 193 K/uL (140-450); RED BLOOD CELL COUNT(AUTO) 4.02 MIL/uL (4.20-6.10); WHITE BLOOD COUNT (AUTO) 4.9 K/uL (4.8-10.8)
[2023-08-26 05:59] LABS: ANION GAP 11.3 (8-16); CALCIUM 8.6 mg/dL (8.5-10.1); CARBON DIOXIDE 27.5 mmol/L (21-32); CHLORIDE 100 mmol/L (98-107); CREATININE 0.7 mg/dL (0.6-1.3); GLUCOSE 259 mg/dL (74-106); POTASSIUM 3.8 mmol/L (3.5-5.1); SODIUM SERUM 135 mmol/L (136-145); UREA NITROGEN, BLOOD 12 mg/dL (7-18)
[2023-08-26 08:00] VITALS: RESP 18
[2023-08-26 16:00] VITALS: BP 114/54; PULSE 83; RESP 18; TEMP 97.9; O2SAT 97
[2023-08-26 20:00] VITALS: BP 116/64; PULSE 90; RESP 18; TEMP 98; O2SAT 95
[2023-08-27 04:00] VITALS: BP 133/58; PULSE 61; RESP 18; TEMP 97.4; O2SAT 97
[2023-08-27 05:43] LABS: BASOPHILS % (AUTO) 0.5 % (0.0-2.0); EOSINOPHILS # (AUTO) 0.2 K/uL (0-0.4); EOSINOPHILS % (AUTO) 3.4 % (0.0-4.0); HEMATOCRIT 37.6 % (36-52); LYMPHOCYTES # (AUTO) 1.2 K/uL (2.0-11.5); LYMPHOCYTES % (AUTO) 19.4 % (20.5-51.1); MEAN CORPUSCULAR HEMOGLOBIN 32 pg (27-31); MEAN CORPUSCULAR HGB CONC 35 g/dL (33-37); MEAN CORPUSCULAR VOLUME 92.5 fL (80-94); MONOCYTES # (AUTO) 0.6 K/uL (0.8-1.0); MONOCYTES % (AUTO) 9.7 % (1.7-9.3); PLATELET COUNT (AUTO) 201 K/uL (140-450); RED BLOOD CELL COUNT(AUTO) 4.06 MIL/uL (4.20-6.10); RED CELL DISTRIBUTION WIDTH 14.7 % (11.6-13.7)
[2023-08-27 06:27] LABS: ANION GAP 13.8 (8-16); CALCIUM 8.7 mg/dL (8.5-10.1); CARBON DIOXIDE 25.9 mmol/L (21-32); CHLORIDE 102 mmol/L (98-107); CREATININE 0.8 mg/dL (0.6-1.3); GLUCOSE 170 mg/dL (74-106); POTASSIUM 3.7 mmol/L (3.5-5.1); SODIUM SERUM 138 mmol/L (136-145); UREA NITROGEN, BLOOD 17 mg/dL (7-18)
[2023-08-27 08:00] VITALS: RESP 18
[2023-08-27 16:00] VITALS: BP 136/62; PULSE 99; RESP 20; TEMP 98.9; O2SAT 98
== END 2023-08-27 18:18 | DRG 640 ==
LOC: MED 14:47 → MTU 18:43
PROVIDERS: ADMIT Internal Medicine; ATTEND Internal Medicine
DX: R62.7 Adult failure to thrive (principal); G93.41 Metabolic encephalopathy; N39.0 Urinary tract infection, site not specified; E44.0 Moderate protein-calorie malnutrition; K21.9 Gastro-esophageal reflux disease without esophagitis; E11.9 Type 2 diabetes mellitus without complications; I10 Essential (primary) hypertension; G30.9 Alzheimer's disease, unspecified; F02.80 Dementia in other diseases classified elsewhere, unspecified severity, without behavioral disturbance, psychotic disturbance, mood disturbance, and anxiety; Z79.899 Other long term (current) drug therapy; Z79.4 Long term (current) use of insulin; Z68.24 Body mass index [BMI] 24.0-24.9, adult
CPT/HCPCS: 36415; 70450; 71045; 80048; 80053; 80305; 81003; 82948; 83735; 84484; 85025; 87081; 93005; 97110; 97116; 97163-GP; 97530; 99285; G0480; G0482; J1815; J2060; Q0092